=== PATIENT | female | born 1995 | race Caucasian/White ===

== ENCOUNTER → 2019-08-23 09:44 | Outpatient (BNVA) | payer MEDICAID, SELFPAY | PROVIDERS: Family Provider Internal Medicine; PCP Internal Medicine; Visit Provider Nurse Practitioner | DX: M54.9 Dorsalgia, unspecified (principal); Z79.891 Long term (current) use of opiate analgesic | CPT/HCPCS: 99213 ==

== ENCOUNTER → 2019-11-28 12:48 | Outpatient (BNVA) | payer MEDICAID, SELFPAY | PROVIDERS: Family Provider Internal Medicine; PCP Internal Medicine; Visit Provider Anesthesiology | DX: M54.41 Lumbago with sciatica, right side (principal); M54.42 Lumbago with sciatica, left side; Z79.891 Long term (current) use of opiate analgesic | CPT/HCPCS: 99213; 99214 ==

== ENCOUNTER 2020-01-15 06:38 | Outpatient (CLI) | payer MEDICAID, SELFPAY ==
--- NOTE | 2020-01-15 06:50 | USCV_ITS ---
Michele Godoy Age: 24 Gender: F : 1995 Exam Date: 01/15/2020 07:03 Ordering Phys: Erasmo Alexandra DO Technologist: Rajni Call [place]am Location[place] [facility] [place]ication: PALPITATIONS BP: / HR: 67 Rhythm: Sinus Technical Quality: Adequate MEASUREMENTS (Male / Female) Normal Values 2D ECHO LV Diastolic Diameter PLAX 3.9 cm 4.2 - 5.9 / 3.9 - 5.3 cm LV Systolic Diameter PLAX 2.4 cm LV Chamber Size 4.0 cm IVS Diastolic Thickness 1.1 cm 0.6 - 1.0 / 0.6 - 0.9 cm IVS Systolic Thickness 1.7 cm LVPW Diastolic Thickness 1.1 cm 0.6 - 1.0 / 0.6 - 0.9 cm LVPW Systolic Thickness 1.7 cm RV Chamber Size 3.1 cm LVOT Diameter 2.0 cm LV Ejection Fraction 2D Teich 70.8 % LV Ejection Fraction MOD 2C 49.1 % LV Ejection Fraction 2C AL 51.9 % LA Diameter 4.2 cm LA Width 3.5 cm LA Height 4.4 cm RA Width 3.5 cm RA Height 4.6 cm Aorta at Sinotubular Diameter 3.2 cm M-MODE LV Diastolic Diameter MM 5.7 cm 4.2 - 5.9 / 3.9 - 5.3 cm LV Systolic Diameter MM 3.2 cm LV Ejection Fraction MM Teich 74.5 % IVS Diastolic Thickness MM 1.0 cm 0.6 - 1.0 / 0.6 - 0.9 cm IVS Systolic Thickness MM 1.5 cm LVPW Diastolic Thickness MM 1.2 cm 0.6 - 1.0 / 0.6 - 0.9 cm LVPW Systolic Thickness MM 1.6 cm RV Diastolic Diameter MM 1.6 cm Aortic Annulus Diameter 3.3 cm LA Ao Ratio MM 1.3 MV E Point Septal Separation 0.6 cm DOPPLER AV Peak Velocity 108.0 cm/s LVOT Peak Velocity 90.0 cm/s AV Area Cont Eq vti 3.0 cm squared AV Area Cont Eq pk 2.7 cm squared MV Area PHT 4.5 cm squared Mitral E to A Ratio 1.5 MV E' Velocity 13.0 cm/s Mitral E to MV E' Ratio 9.9 Mitral E to LV E' Lateral Ratio 8.3 Mitral E to LV E' Septal Ratio 12.6 TR Peak Velocity 81.7 cm/s TR Peak Gradient 2.7 mmHg TR Mean Velocity 57.3 cm/s TR Mean Gradient 1.4 mmHg TR Velocity Time Integral 15.5 cm TV Peak E Velocity 80.0 cm/s Right Atrial Pressure 3.0 mmHg Pulmonary Artery Systolic Pressu 5.7 mmHg PV Peak Velocity 68.0 cm/s RV Acceleration Time 0.2 s RV Ejection Time 0.4 s RV AcT/ET 0.5 FINDINGS Left Ventricle Normal left ventricular size, systolic function and wall thickness, with no regional wall motion abnormalities. Normal left ventricular wall thickness. Normal diastolic filling pattern. Left ventricular ejection fraction around 70% Right Ventricle The right ventricle is normal in size and function. Right Atrium The right atrium is normal in size. Left Atrium The left atrium is normal in size. Mitral Valve Trace to mild mitral valve regurgitation. Aortic Valve No gross abnormalities noted Tricuspid Valve Trace to mild tricuspid valve regurgitation. Pulmonic Valve No gross abnormalities noted Pericardium Normal pericardium without effusion. Aorta Normal ascending aorta dimension. CONCLUSIONS Normal left ventricular size, systolic function and wall thickness, with no regional wall motion abnormalities. Normal left ventricular wall thickness. Normal diastolic filling pattern. Left ventricular ejection fraction around 70%. Trace to mild mitral valve regurgitation. Trace to mild tricuspid valve regurgitation. There is no pericardial effusion. There are no intracardiac masses. No evidence of intracardiac shunts, by color flow Doppler examination. No previous study is available for comparison. Dr Niko Laurent MD FACC (Electronically Signed) Final Date: 15 January 2020 23:42 S
== END 2020-01-15 06:39 | disposition home or self-care (01) ==
PROVIDERS: PCP Internal Medicine; Visit Provider Internal Medicine
DX: R06.00 Dyspnea, unspecified (principal); I34.0 Nonrheumatic mitral (valve) insufficiency; I07.1 Rheumatic tricuspid insufficiency
CPT/HCPCS: 93306

== ENCOUNTER → 2020-02-20 13:05 | Outpatient (BNVA) | payer MEDICAID, SELFPAY | PROVIDERS: Family Provider Internal Medicine; PCP Internal Medicine; Visit Provider Anesthesiology | DX: M54.42 Lumbago with sciatica, left side (principal); M54.41 Lumbago with sciatica, right side; Z79.891 Long term (current) use of opiate analgesic | CPT/HCPCS: 99213; 99214 ==

== ENCOUNTER → 2020-05-28 10:11 | Outpatient (BNVA) | payer MEDICAID, SELFPAY | PROVIDERS: Family Provider Internal Medicine; PCP Internal Medicine; Visit Provider Anesthesiology | DX: M54.42 Lumbago with sciatica, left side (principal); M54.41 Lumbago with sciatica, right side; Z79.891 Long term (current) use of opiate analgesic | CPT/HCPCS: 99212; 99214 ==

== ENCOUNTER → 2020-06-24 15:43 | Outpatient (BNVA) | payer MEDICAID, SELFPAY | PROVIDERS: Family Provider Internal Medicine; PCP Internal Medicine; Visit Provider Nurse Practitioner Psychiatric/Mental Health | DX: F43.12 Post-traumatic stress disorder, chronic (principal); F33.3 Major depressive disorder, recurrent, severe with psychotic symptoms; Z03.89 Encounter for observation for other suspected diseases and conditions ruled out | CPT/HCPCS: 99214 ==

== ENCOUNTER → 2020-07-01 08:42 | Outpatient (BNVA) | payer MEDICAID, SELFPAY | PROVIDERS: Family Provider Internal Medicine; PCP Internal Medicine; Visit Provider Nurse Practitioner Psychiatric/Mental Health | DX: Z03.89 Encounter for observation for other suspected diseases and conditions ruled out (principal) | CPT/HCPCS: 80053; 80061; 83036 ==

== ENCOUNTER → 2020-07-21 09:34 | Outpatient (BNVA) | payer MEDICAID, SELFPAY | PROVIDERS: Family Provider Internal Medicine; PCP Internal Medicine; Visit Provider Nurse Practitioner Psychiatric/Mental Health | DX: F33.3 Major depressive disorder, recurrent, severe with psychotic symptoms (principal); F43.12 Post-traumatic stress disorder, chronic | CPT/HCPCS: 99213 ==

== ENCOUNTER → 2020-08-15 12:37 | Outpatient (BNVA) | payer MEDICAID, SELFPAY | PROVIDERS: Family Provider Internal Medicine; PCP Internal Medicine; Visit Provider Anesthesiology | DX: M54.5 Low back pain (principal); Z79.891 Long term (current) use of opiate analgesic | CPT/HCPCS: 99213 ==

== ENCOUNTER → 2020-10-07 08:51 | Outpatient (BNVA) | payer MEDICAID, SELFPAY | PROVIDERS: Family Provider Internal Medicine; PCP Internal Medicine; Visit Provider Nurse Practitioner Psychiatric/Mental Health | DX: F33.3 Major depressive disorder, recurrent, severe with psychotic symptoms (principal); F43.12 Post-traumatic stress disorder, chronic | CPT/HCPCS: 99214 ==

== ENCOUNTER → 2020-11-04 08:31 | Outpatient (BNVA) | payer MEDICAID, SELFPAY | PROVIDERS: Family Provider Internal Medicine; PCP Internal Medicine; Visit Provider Nurse Practitioner Psychiatric/Mental Health | DX: F43.12 Post-traumatic stress disorder, chronic (principal); F33.9 Major depressive disorder, recurrent, unspecified | CPT/HCPCS: 99213 ==

== ENCOUNTER → 2020-11-12 12:58 | Outpatient (BNVA) | payer MEDICAID, SELFPAY | PROVIDERS: Family Provider Internal Medicine; PCP Internal Medicine; Visit Provider Social Worker Clinical | DX: F43.12 Post-traumatic stress disorder, chronic (principal); F33.3 Major depressive disorder, recurrent, severe with psychotic symptoms | CPT/HCPCS: 90834 ==

== ENCOUNTER → 2020-11-19 13:08 | Outpatient (BNVA) | payer MEDICAID, SELFPAY | PROVIDERS: Family Provider Internal Medicine; PCP Internal Medicine; Visit Provider Nurse Practitioner | DX: M54.5 Low back pain (principal); Z79.891 Long term (current) use of opiate analgesic | CPT/HCPCS: 99213; 99214 ==

== ENCOUNTER → 2020-12-03 15:52 | Outpatient (BNVA) | payer MEDICAID, SELFPAY | PROVIDERS: Family Provider Internal Medicine; PCP Internal Medicine; Visit Provider Social Worker Clinical | DX: F33.3 Major depressive disorder, recurrent, severe with psychotic symptoms (principal); F43.12 Post-traumatic stress disorder, chronic | CPT/HCPCS: 90834 ==

== ENCOUNTER → 2020-12-29 07:29 | Outpatient (BNVA) | payer MEDICAID, SELFPAY | PROVIDERS: Family Provider Internal Medicine; PCP Internal Medicine; Visit Provider Nurse Practitioner Psychiatric/Mental Health | DX: F43.12 Post-traumatic stress disorder, chronic (principal); F33.3 Major depressive disorder, recurrent, severe with psychotic symptoms | CPT/HCPCS: 99213 ==

== ENCOUNTER 2021-01-14 11:56 | Outpatient (CLI) | payer OTHER, SELFPAY ==
--- NOTE | 2021-01-14 12:03 | XR_ITS ---
WS: [id number] XR lumbar spine 2-3V* [id number] REASON FOR EXAM: ?DDD FINDINGS: No focal vertebral body abnormality. Minimal narrowing of the L5-S1 disc space. No spondylolisthesis or spondylolysis. XR/XR lumbar spine 2-3V* [id number] IMPRESSION: Minimal degenerative disc change at L5-S1 as above.
--- NOTE | 2021-01-14 12:03 | XR_ITS ---
WS: [id number] XR cervical spine 3V* [id number] REASON FOR EXAM: ?DDD FINDINGS: The cervical spine is unchanged compared to the examination of 03/12/2015. There is narrowing of the i ntervertebral disc space at C3-C4. The remainder of the cervical spine bone and disc are unremarkable. XR/XR cervical spine 3V* [id number] IMPRESSION: Stable abnormal examination as above.
== END 2021-01-14 11:57 | disposition home or self-care (01) ==
LOC: RAD 12:00
PROVIDERS: PCP Internal Medicine; Visit Provider Dermatology
DX: Z02.71 Encounter for disability determination (principal)
CPT/HCPCS: 72040; 72100

== ENCOUNTER → 2021-02-13 08:47 | Outpatient (BNVA) | payer MEDICAID, SELFPAY | PROVIDERS: PCP Internal Medicine; Visit Provider Nurse Practitioner | DX: M54.5 Low back pain (principal); Z79.891 Long term (current) use of opiate analgesic | CPT/HCPCS: 99212 ==

== ENCOUNTER 2021-03-18 15:17 | Outpatient (CLI) | payer MEDICAID, SELFPAY | END 2021-03-18 15:18 | disposition home or self-care (01) | LOC: SLEEP 15:18 | PROVIDERS: PCP Internal Medicine; Visit Provider Internal Medicine | DX: G47.10 Hypersomnia, unspecified (principal) | CPT/HCPCS: G0399 ==

== ENCOUNTER → 2021-03-30 07:02 | Outpatient (BNVA) | payer MEDICAID, SELFPAY | PROVIDERS: PCP Internal Medicine; Visit Provider Nurse Practitioner Psychiatric/Mental Health | DX: F43.12 Post-traumatic stress disorder, chronic (principal); F33.3 Major depressive disorder, recurrent, severe with psychotic symptoms; Z03.89 Encounter for observation for other suspected diseases and conditions ruled out | CPT/HCPCS: 99214 ==

== ENCOUNTER 2021-04-01 22:18 | Emergency (ER) | payer MEDICAID, SELFPAY ==
[2021-04-01 22:24] VITALS: BP 131/84; PULSE 70; RESP 18; TEMP 36.9; O2SAT 97; BMI 47.1
--- NOTE | 2021-04-01 23:38 | ED_ITS ---
HPI - Animal Bite General: Chief Complaint: Animal Bite Stated Complaint: Right hand injury Time Seen by Provider: 04/01/21 22:37 History of Present Illness: HPI narrative: Patient is a 25-year-old female comes to the ED with a cat bite to right hand. Patient was bit by cat on 2 separate occasions and one occurred last night and the other 1 occurred this morning. Patient owns the cat and it is fully vaccinated including rabies vaccination. She has some mild swelling, ecchymosis and pain to right hand with multiple puncture wounds. Patient needs an updated tetanus shot. Associated symptoms: Deny chills, fever(s) or headache(s) Review of Systems Const: Denies: fever(s), chills or fatigue Eyes: Denies: change in vision or eye discomfort ENMT: Denies: throat pain, odynophagia, nasal discharge or nasal congestion Card: Denies: chest pain, palpitations, edema, swelling of feet/ankles, dyspnea on exertion or orthopnea Resp: Denies: dyspnea, productive cough or non-productive cough GI: Denies: abdominal pain, nausea, vomiting, diarrhea, constipation or hematochezia : Denies: flank pain, dysuria or hematuria Musc: Reports: extremity pain (Right hand) and extremity swelling (Right hand); Denies: neck pain or back pain Skin/Breast: Denies: rash or new lesions Neuro: Denies: headache(s), numbness in extremities or weakness in extremities PFS ED PFSH: Medical History Chronic post-traumatic stress disorder (PTSD) Per Behavior Assessment Report on 05/27/20:She has nightmares, flashbacks, some loud noises bother her, she feels it is her vertigo; she avoids certain situations, places, people, and things that may trigger her trauma. See HPI for further information regarding trauma history. Encounter for long-term opiate analgesic use Low back pain of over 3 months duration Opioid contract exists Surgical History History of tonsillectomy and adenoidectomy Hx of gastric bypass Family History Unknown Cancer Diabetes Stroke Father Advanced cirrhosis of liver Diabetes Hepatitis C Social History Smoking and tobacco status: never smoked Second hand smoke exposure: Yes Alcohol intake: never History of recent travel: No Current gender identity: Female Female Reproductive History: Date of last menstrual period: 04/19/21 Physical Exam Const: COMMON NORMALS: no acute distress, patient oriented x3 and alert GENERAL APPEARANCE: cooperative and comfortable HENMT: COMMON NORMALS: normocephalic HEAD & SCALP: normocephalic MOUTH: Normal oral and palatal mucosa present THROAT: posterior oropharynx normal and uvula midline Neck/C-Spine: COMMON NORMALS: supple GENERAL: Yes normal visual inspection Resp: COMMON NORMALS: normal respiratory effort, No retractions, No use of accessory muscles and clear to auscultation bilaterally AUSCULTATION: clear to auscultation bilaterally Cardio: COMMON NORMALS: regular rate, regular rhythm, S1 normal heart sound present, S2 normal heart sound present, No gallops present (Cardio), No clicks present (Cardio), No murmurs present (Cardio) and Peripheral pulses 2+ throughout RATE: regular rate RHYTHM: regular rhythm HEART SOUNDS: S1 normal heart sound present and S2 normal heart sound present PERIPHERAL PULSES: Peripheral pulses 2+ throughout GI: COMMON NORMALS: Normal to inspection, nondistended, normoactive bowel sounds present, Soft to palpation, non-tender and no masses PALPATION: Yes So ft to palpation : COMMON NORMALS: Yes no CVA tenderness BLADDER/KIDNEY EXAM: Yes no CVA tenderness Back/Pelvis: COMMON NORMALS: no CVA tenderness Extremity: NARRATIVE EXTREMITY EXAM: Patient has multiple small puncture wounds to right hand. Some mild swelling and ecchymosis noted as well. Some erythema and warmth around puncture wound as well. GENERAL: Yes normal exam except as noted Neuro: COMMON NORMALS: patient oriented x3 and moves all extremities SENSORIUM/ORIENTATION: Yes alert Skin: NARRATIVE SKIN EXAM: Patient has multiple small puncture wounds to right hand. Some mild swelling and ecchymosis noted as well. Some erythema and warmth around puncture wound as well. GENERAL SKIN EXAM: dry skin Course Vital Signs: Vital signs: Vital Signs Temperature 98.4 F 04/01/21 22:24 Pulse Rate 70 04/01/21 22:24 Respiratory Rate 18 04/01/21 22:24 Blood Pressure 131/84 04/01/21 22:24 Pulse Oximetry 97 04/01/21 22:24 MDM - Animal Bite MDM Narrative: Medical decision making narrative: Patient is a 25-year-old female comes to the ED with a cat bite on right hand. Has multiple puncture wounds noted with some mild swelling, erythema and ecchymosis noted. Cat was fully vaccinated including for rabies. X-ray of right hand showed no acute fractures or findings. Patient was given updated tetanus while here in the ED. Patient diagnosed with a cat bite on right hand discharged home with a prescription for Augmentin. Patient told to follow-up with PCP in 7 to 10 days for reevaluation. Return to ED precautions given. Patient understood and agree with plan. Imaging Data^: Xray Ortho: Attestation: I personally reviewed and interpreted this imaging study as follows: My impression: Right hand x-ray?no acute fractures or findings seen. Discharge Plan Discharge Patient Disposition: Home Clinical Impression: Cat bite Qualifiers: Encounter type: initial encounter Qualified Code(s): W55.01XA - Bitten by cat, initial encounter Condition: Stable Prescriptions: New Augmentin 500-125 mg tablet 1 tab PO BID 10 Days Qty: 20 RF: 0 ibuprofen 800 mg tablet 800 mg PO Q8H PRN (Reason: pain) Qty: 20 RF: 0 No Action magnesium 250 mg tablet 250 mg PO .1 DAY RF: 0 vitamin B complex Tablet 1 tab PO .1 DAY RF: 0 biotin 800 mcg tablet 800 mcg PO .1 DAY RF: 0 montelukast 10 mg tablet 10 mg PO DAILY RF: 0 ondansetron HCl [Zofran] 4 mg tablet 4 mg PO .1-2 qid PRNRF: 0 cetirizine 10 mg tablet 10 mg PO DAILY RF: 0 omeprazole 20 mg capsule,delayed release(DR/EC) 20 mg PO DAILY RF: 0 hydroxyzine HCl 25 mg tablet 25 mg PO BID PRNRF: 0 potassium gluconate 595 mg (99 mg) tablet 595 mg PO DAILY RF: 0 citalopram 40 mg tablet 40 mg PO QAM Qty: 30 RF: 2 medroxyprogesterone [Depo-Provera] 150 mg/mL suspension IM .EVERY 3 MONTHS RF: 0 tizanidine 4 mg tablet 4 mg PO BID PRN (Reason: muscle spasticity) Qty: 60 RF: 2 tramadol 50 mg tablet 50 mg PO QID PRN (Reason: pain) Qty: 120 RF: 2 Discharge Orders: Discharge ED (Routine); Ordered 04/02/21 Ordered By: Brent Stanford Referrals: Erasmo Alexandra DO [Primary Care Provider] - Discharge Diet: Regular Discharge Activity: Increase activity as tolerated Patient Instructions: Animal Bites - Adult Activity Restrictions/Additional Instructions: Follow-up with medical provider as directed in 7 to 10 days for reevaluation. Take medications as prescribed. Apply cold pack on hand to help with swelling. Return to the ER or your medical provider if condition worsens. Please read and understand discharge instructions. Thank you for choosing [facility] for your healthcare needs today. Please realize this is an emergency room and that we are providing you with a medical screening exam and this may not be complete and all inclusive of all the testing and or work up that you may need to determine your ailment or severity of your illness. It is very important that you follow up as instructed or that you return to the Emergency Department should you have concerns or if your condition changes or worsens in any way. Coding Level of Care Code ED Food And Beverage Coordinator for Phillip Read Exam Comprehensive
--- NOTE | 2021-04-01 23:40 | XRR_ITS ---
PROCEDURE INFORMATION: Exam: XR Right Hand Exam date and time: 04/01/2021 11:40 PM Age: 25 years old Clinical indication: Pain and injury or trauma; Other: Puncture; Right; Patient HX: Cat bite to top of hand. Swelling with redness. ; Additional info: Cat bite with swelling and ecchymosis TECHNIQUE: Imaging protocol: XR Right hand. Views: 3 or more views. COMPARISON: No relevant prior studies available. FINDINGS: Bones/joints: Normal. Soft tissues: There is moderate soft tissue swelling in the dorsum of the hand punctate focus of air. No foreign body. XR/XR hand RT min 3V* [id number] IMPRESSION: No acute bony injury or foreign body. Radiation Dose CTDIVOL = (mGy): DLP = (mGy-cm)
[2021-04-02] MEDS: tetanus-dipt-pertussis 0.5 mL SDV IM (00:07)
[2021-04-02] MEDS: amoxicillin-clav 500-125 mg Tablet 1 TAB PO (01:02)
[2021-04-02 01:03] VITALS: BP 134/86; PULSE 70; RESP 18; O2SAT 97
== END 2021-04-02 01:00 | disposition home or self-care (01) ==
PROVIDERS: Emergency Provider Physician Assistant; PCP Internal Medicine
DX: S61.451A Open bite of right hand, initial encounter (principal); W55.01XA Bitten by cat, initial encounter; Z77.22 Contact with and (suspected) exposure to environmental tobacco smoke (acute) (chronic); Z23 Encounter for immunization
CPT/HCPCS: 73130; 90471; 90715; 99283

== ENCOUNTER → 2021-04-16 09:57 | Outpatient (BNVA) | payer MEDICAID, SELFPAY | PROVIDERS: PCP Internal Medicine; Visit Provider Nurse Practitioner Psychiatric/Mental Health | DX: Z03.89 Encounter for observation for other suspected diseases and conditions ruled out (principal) | CPT/HCPCS: 84439; 84443; 84481 ==

== ENCOUNTER → 2021-07-15 09:46 | Outpatient (BNVA) | payer MEDICAID, SELFPAY | PROVIDERS: PCP Internal Medicine; Visit Provider Anesthesiology | DX: M54.50 Low back pain, unspecified (principal); Z79.891 Long term (current) use of opiate analgesic | CPT/HCPCS: 99213 ==

== ENCOUNTER → 2021-11-30 14:36 | Outpatient (BNVA) | payer MEDICAID, SELFPAY | PROVIDERS: PCP Internal Medicine; Visit Provider Nurse Practitioner Psychiatric/Mental Health | DX: F43.12 Post-traumatic stress disorder, chronic (principal); F33.3 Major depressive disorder, recurrent, severe with psychotic symptoms | CPT/HCPCS: 99213 ==

== ENCOUNTER 2022-02-09 07:54 | Outpatient (CLI) | payer MEDICAID, SELFPAY ==
--- NOTE | 2022-02-09 08:06 | NM_ITS ---
WS: [id number] NUCLEAR MEDICINE HIDA SCAN CLINICAL INFORMATION: RUQ ABDOMINAL PAIN TECHNIQUE: Following intravenous administration of 7.8 mCi of technetium 99m mebrofenin, images of th e abdomen were obtained over the course of 60 minutes. Next, gallbladder ejection fraction was determ ined by obtaining preprandial and one-hour postprandial images of the gallbladder following oral selma stion of Ensure. COMPARISON: Ultrasound December 24, 2021 and HIDA FINDINGS: Mild hepatomegaly. Normal hepatic uptake and excretion. Gallbladder visualized by 30 minutes. No evid ence of acute cholecystitis. Normal common bile duct and small bowel activity. Gallbladder ejection fraction 78% within normal limits. No evidence of chronic cholecystitis. NM/NM hepatobiliary w phar* [id number] IMPRESSION: 1. No evidence of acute or chronic cholecystitis. 2. Gallbladder ejection fraction 78% within normal limits.
== END 2022-02-09 07:55 | disposition home or self-care (01) ==
LOC: RAD 07:58
PROVIDERS: PCP Internal Medicine; Visit Provider Internal Medicine
DX: R10.11 Right upper quadrant pain (principal)
CPT/HCPCS: 78227; A9537

== ENCOUNTER 2022-03-13 17:58 | Emergency (ER) | payer MEDICAID, SELFPAY ==
[2022-03-13 18:03] VITALS: BP 177/85; PULSE 75; RESP 16; TEMP 36.6; O2SAT 98; BMI 48.4
[2022-03-13 18:44] LABS: Basophils % 0.5 %; Eosinophils # 0.2 10^3/uL (0.0-0.8); Eosinophils % 1.8 %; Hematocrit 36.4 % (37.0-47.0); Hemoglobin 12.4 g/dL (11.5-15.3); Lymphocytes # 2.1 10^3/uL (0.8-4.8); Lymphocytes % 25.4 %; Mean Corpuscular HGB Conc 34.1 g/dL (30.0-36.0); Mean Corpuscular Hemoglobin 31.4 pg (28.0-34.0); Mean Corpuscular Volume 92.2 fl (81-99); Mean Platelet Volume 10.6 fL (7.4-10.4); Monocytes # 0.7 10^3/uL (0.2-0.9); Monocytes % 8.2 %; Neutrophils # 5.33 10^3/uL (1.8-7.7); Neutrophils % 63.9 %; Nucleated Red Blood Cells % 0 %; Platelet Count 261 10^3/cmm (130-400); Red Blood Count 3.95 10^6/uL (4.1-5.3); White Blood Count 8.3 10^3/uL (4.0-10.0)
[2022-03-13 19:21] LABS: Alanine Aminotransferase 11 U/L (0-33); Alkaline Phosphatase 58 U/L (35-105); Anion Gap 13.7 (5-19); Aspartate Amino Transferase 15 U/L (0-32); Blood Urea Nitrogen 9 mg/dL (6-20); Calcium 8.9 mg/dL (8.5-10.5); Carbon Dioxide 23 mmol/L (22-29); Chloride 106 mmol/L (98-107); Globulin 2.5 g/dL (1.3-4.6); Glucose 99 mg/dL (65-115); HCG, Serum Qual Negative (Negative); Lipase 52 U/L (13-60); Osmolality Calculated 287 mOsm/kg (285-295); Potassium 3.7 mmol/L (3.5-5.1); Sodium 139 mmol/L (136-145); Total Bilirubin 0.2 mg/dL (0.15-1.2); Total Protein 6.5 g/dL (6.6-8.7)
--- NOTE | 2022-03-13 19:43 | ED_ITS ---
HPI - SOB/Dyspnea General: Chief Complaint: Shortness of Breath/Dyspnea Stated Complaint: Abd pains, Sob, N/V Time Seen by Provider: 03/13/22 19:43 History of Present Illness: HPI Narrative: Ms. Godoy is a 26-year-old lady with complex past medical history presents to the emergency department due to abdominal pain and shortness of breath. She reports being at her baseline health and being upset about something when she walked to her room. She had sudden onset epigastric and the right upper quadrant abdominal pain which radiated to the chest and due to the level of pain she felt short of breath. This is still present. She had 1 similar episode previously and that was yesterday under similar circumstances. Quality is sharp stabbing. Intensity is moderate to severe. No other specific changes in health, exacerbating, or alleviating factors identified. Onset (ago): minute(s) Context: anxiety and other Timing: constant Severity: moderate Relieving factors: nothing Review of Systems General: Reports: 10 or more systems reviewed and unremarkable except in HPI and below PFSH ED PFSH: Medical History Chronic post-traumatic stress disorder (PTSD) Per Behavior Assessment Report on 05/27/20:She has nightmares, flashbacks, some loud noises bother her, she feels it is her vertigo; she avoids certain situations, places, people, and things that may trigger her trauma. See HPI for further information regarding trauma history. Encounter for long-term opiate analgesic use Low back pain of over 3 months duration Opioid contract exists Surgical History History of tonsillectomy and adenoidectomy Hx of gastric bypass Family History Unknown Cancer Diabetes Stroke Father Advanced cirrhosis of liver Diabetes Hepatitis C Social History Smoking and tobacco status: never smoked Second hand smoke exposure: Yes Alcohol intake: never History of recent travel: No Current gender identity: Female Female Reproductive History: Date of last menstrual period: 04/19/21 Physical Exam Const: COMMON NORMALS: alert GENERAL APPEARANCE: cooperative and well developed HENMT: COMMON NORMALS: normocephalic and atraumatic HEAD & SCALP: normocephalic and atraumatic Eye: COMMON NORMALS: conjunctivae normal CONJUNCTIVA: Yes conjunctivae nor mal SCLERA: sclerae normal Neck/C-Spine: COMMON NORMALS: supple GENERAL: Yes trachea midline Resp: COMMON NORMALS: clear to auscultation bilaterally EFFORT & INSPECTION: Yes able to speak in complete sentences AUSCULTATION: clear to auscultation bilaterally Cardio: COMMON NORMALS: regular rate and regular rhythm RATE: regular rate RHYTHM: regular rhythm GI: COMMON NORMALS: Soft to palpation PALPATION: Yes Soft to palpation and No Tenderness to palpation present (GI) Extremity: GENERAL: Yes normal exam except as noted and No edema Neuro: COMMON NORMALS: moves all extremities SENSORIUM/ORIENTATION: Yes alert and No Orientation impaired Psych: COMMON NORMALS: mental status grossly normal and Normal thought process present THOUGHT PROCESS: Normal thought process present Course Vital Signs: Vital signs: Vital Signs Temperature 98.1 F 03/13/22 21:53 Pulse Rate 78 03/13/22 21:53 Respiratory Rate 17 03/13/22 21:53 Blood Pressure 131/79 03/13/22 21:53 Pulse Oximetry 97 03/13/22 21:53 Oxygen Delivery Me thod 03/13/22 20:30 MDM - SOB/Dyspnea Medical Decision Making 26-year-old lady presenting with shortness of breath and other symptoms in the context of being upset. Vital signs are satisfactory. EKG shows on sinus bradycardia with no evidence of STEMI. Laboratory studies without clear ab normality to explain symptoms. Chest x-ray with no lobar consolidation or pneumothorax. Gallbladder ultrasound concerning for cholecystitis. After extensive discussion with the patient she prefers trial of therapy with antibiotics at home. Strict return precautions and follow-up plan discussed. Plan to have follow-up with general surgery. Medical Records I reviewed the patient's medical records. Lab Data I reviewed the patient's lab results. : 03/13/22 18:35 03/13/22 18:35 Labs/Radiology: Radiology Impressions Abdomen Ultrasound 03/13/22 19:52 IMPRESSION: 1. Cholelithiasis with gallbladder wall thickening to 5.8 mm, concerning for cholecystitis in the appropriate clinical setting. 2. Liver enlarged to 18.5 cm with hepatic steatosis. Chest X-Ray 03/13/22 19:52 IMPRESSION: No acute findings. Laboratory Results WBC 8.3 10^3/uL (4.0-10.0) 03/13/22 18:35 RBC 3.95 10^6/uL (4.1-5.3) L 03/13/22 18:35 Hgb 12.4 g/dL (11.5-15.3) 03/13/22 18:35 Hct 36.4 % (37.0-47.0) L 03/13/22 18:35 MCV 92.2 fl (81-99) 03/13/22 18:35 MCH 31.4 pg (28.0-34.0) 03/13/22 18:35 MCHC 34.1 g/dL (30.0-36.0) 03/13/22 18:35 RDW 12.0 % (12.1-15.1) L 03/13/22 18:35 Plt Count 261 10^3/cmm (130-400) 03/13/22 18:35 MPV 10.6 fL (7.4-10.4) H 03/13/22 18:35 Neut % (Auto) 63.9 % 03/13/22 18:35 Lymph % (Auto) 25.4 % 03/13/22 18:35 [place] % (Auto) 8.2 % 03/13/22 18:35 Eos % (Auto) 1.8 % 03/13/22 18:35 Baso % (Auto) 0.5 % 03/13/22 18:35 Neut # (Auto) 5.33 10^3/uL (1.8-7.7) 03/13/22 18:35 Lymph # (Auto) 2.1 10^3/uL (0.8-4.8) 03/13/22 18:35 [place] # (Auto) 0.7 10^3/uL (0.2-0.9) 03/13/22 18:35 Eos # (Auto) 0.2 10^3/uL (0.0-0.8) 03/13/22 18:35 Baso # (Auto) 0.0 10^3/uL (0.0-0.1) 03/13/22 18:35 Nucleated RBC % (auto) 0 % 03/13/22 18:35 Nucleated RBCs # 0.0 /100WBC 03/13/22 18:35 Sodium 139 mmol/L (136-145) 03/13/22 18:35 Potassium 3.7 mmol/L (3.5-5.1) 03/13/22 18:35 Chloride 106 mmol/L (98-107) 03/13/22 18:35 Carbon Dioxide 23 mmol/L (22-29) 03/13/22 18:35 Anion Gap 13.7 (5-19) 03/13/22 18:35 BUN 9 mg/dL (6-20) 03/13/22 18:35 Creatinine 1.0 mg/dL (0.5-0.9) H 03/13/22 18:35 GFR Calculation 67.0 mL/min (90-130) L 03/13/22 18:35 Glucose 99 mg/dL (65-115) 03/13/22 18:35 Calculated Osmolality 287 mOsm/kg (285-295) 03/13/22 18:35 Calcium 8.9 mg/dL (8.5-10.5) 03/13/22 18:35 Total Bilirubin 0.2 mg/dL (0.15-1.2) 03/13/22 18:35 AST 15 U/L (0-32) 03/13/22 18:35 ALT 11 U/L (0-33) 03/13/22 18:35 Alkaline Phosphatase 58 U/L (35-105) 03/13/22 18:35 Total Protein 6.5 g/dL (6.6-8.7) L 03/13/22 18:35 Albumin 4.0 g/dL (3.5-5.2) 03/13/22 18:35 Globulin 2.5 g/dL (1.3-4.6) 03/13/22 18:35 Lipase 52 U/L (13-60) 03/13/22 18:35 HCG, Qual Negative (Negative) 03/13/22 18:35 Urine Color Yellow (Yellow) 03/13/22 21:12 Urine Appearance Sl hazy (CLEAR) 03/13/22 21:12 Urine pH 5 (5-7) 03/13/22 21:12 Ur Specific [place] 1.025 (1.005-1.030) 03/13/22 21:12 Urine Protein Neg (Negative) 03/13/22 21:12 Urine Glucose (UA) Norm (Normal) 03/13/22 21:12 Urine Ketones 1+ (Negative) H 03/13/22 21:12 Urine Blood Neg (Negative) 03/13/22 21:12 Urine Nitrate Negative (Negative) 03/13/22 21:12 Urine Bilirubin Neg (Negative) 03/13/22 21:12 Urine Urobilinogen 1 mg/dL (Negative) H 03/13/22 21:12 Ur Leukocyte Esterase Trace (Negative) H 03/13/22 21:12 Urine RBC 0-4 /hpf (0-2) H 03/13/22 21:12 Urine WBC 5-10 /hpf (0-5) H 03/13/22 21:12 Ur Squamous Epith Cells 10-15 /hpf (0-5) H 03/13/22 21:12 Amorphous Sediment Not Reportable 03/13/22 21:12 Urine Bacteria 2+ /hpf (NONE) H 03/13/22 21:12 Urine Mucus 1+ /hpf 03/13/22 21:12 SARS-CoV-2 Ag (Rapid) Negative (Negative) 03/13/22 20:26 Discharge Plan Discharge Patient Disposition: Home Clinical Impression: Biliary colic, Thickening of wall of gallbladder, Cholelithiases Condition: Stable Prescriptions: New ondansetron 4 mg tablet,disintegrating 4 mg PO Q8H PRN (Reason: nausea and vomiting) Qty: 15 0RF oxycodone 5 mg tablet 5 mg PO Q4H PRN (Reason: pain) Qty: 20 0RF ciprofloxacin HCl 500 mg tablet 500 mg PO Q12H Qty: 20 0RF No Action magnesium 250 mg tablet 250 mg PO .1 DAY vitamin B complex Tablet 1 tab PO .1 DAY montelukast 10 mg tablet 10 mg PO DAILY ondansetron HCl [Zofran] 4 mg tablet 4 mg PO .1-2 qid PRN cetirizine 10 mg tablet 10 mg PO DAILY omeprazole 20 mg capsule,delayed release(DR/EC) 20 mg PO DAILY hydroxyzine HCl 25 mg tablet 25 mg PO BID PRN potassium gluconate 595 mg (99 mg) tablet 595 mg PO DAILY medroxyprogesterone [Depo-Provera] 150 mg/mL suspension IM .EVERY 3 MONTHS tizanidine 4 mg tablet 4 mg PO BID PRN (Reason: muscle spasticity) Qty: 60 2RF risperidone 0.5 mg tablet 0.5 mg PO BID Qty: 60 0RF Rx Instructions: Take one tablet by mouth morning and at bedtime citalopram 40 mg tablet 40 mg PO QAM Qty: 30 0RF Rx Instructions: Take one tablet by mouth every morning ibuprofen 800 mg tablet 800 mg PO Q8H PRN (Reason: pain) Qty: 20 0RF Discharge Orders: Discharge ED (Routine); Ordered 03/13/22 Ordered By: Shamir Rubi Referrals: Erasmo Alexandra DO [Primary Care Provider] - Discharge Diet: Low Fat Discharge Activity: Increase activity as tolerated Patient Instructions: Biliary Colic (ED), Low Fat Diet (ED), Abdominal Pain (ED), Opioid Safety Activity Restrictions/Additional Instructions: Thank you for visiting the emergency department. You were seen and evaluated for abdominal pain and shortness of breath. As discussed the exact cause of your symptoms is unclear though may be related to infection of the gallbladder (cholecystitis). You are electing to have a trial of treatment at home and I will message case management for follow-up with general surgery. Return to the emergency department for uncontrolled symptoms, fevers, inability to tolerate oral intake, or anything else that you are concerned about a feel needs emergency department evaluation. Coding Level of Care Code ED Senior Science Consultant for Phillip Read
--- NOTE | 2022-03-13 19:52 | USR_ITS ---
PROCEDURE INFORMATION: Exam: US Abdomen, Limited; Right Upper Quadrant Exam date and time: 03/13/2022 7:58 PM Age: 26 years old Clinical indication: Abdominal pain and other: PT very SOB and chest pain; Acute; Patient HX: Please see prior nuc med scan and US of abd ltd; Additional info: Ruq/biliary TECHNIQUE: Imaging protocol: Real time ultrasound of the abdomen with image documentation. Limited exam focused on the right upper quadrant. COMPARISON: US abdomen limited [id number] 12/24/2021 3:23 PM FINDINGS: Liver: Liver enlarged to 18.5 cm with hepatic steatosis. Gallbladder: Cholelithiasis with gallbladder wall thickening to 5.8 mm, concerning for cholecystitis in the appropriate clinical setting. Biliary ducts: Normal. No stones. No dilation. Pancreas: Visualized pancreas is unremarkable. Right kidney: Normal. No mass. No hydronephrosis. US/US abdomen limited [id number] IMPRESSION: 1. Cholelithiasis with gallbladder wall thickening to 5.8 mm, concerning for cholecystitis in the appropriate clinical setting. 2. Liver enlarged to 18.5 cm with hepatic steatosis.
--- NOTE | 2022-03-13 19:52 | XRR_ITS ---
PROCEDURE INFORMATION: Exam: XR Chest Exam date and time: 03/13/2022 8:25 PM Age: 26 years old Clinical indication: Chest wall pain; Additional info: SOB TECHNIQUE: Imaging protocol: Radiologic exam of the chest. Views: 1 view. COMPARISON: CR XR chest 2V* [id number] 12/26/2019 1:47 PM FINDINGS: Lungs: Unremarkable. No consolidation. Pleural spaces: Unremarkable. No pleural effusion. No pneumothorax. Heart/Mediastinum: Unremarkable. No cardiomegaly. Bones/joints: Unremarkable. XR/XR chest 1V portable [id number] IMPRESSION: No acute findings.
--- NOTE | 2022-03-13 20:08 | PC.NURSE ---
ultrasound at bedside performing test. will attempt IV and pain medications upon finsihing. patient in no obivous distress.
[2022-03-13] MEDS: ondansetron 2 mg/ML SDV 2 mL 4 MG IVP (20:27)
[2022-03-13 20:30] VITALS: BP 139/68; PULSE 61; RESP 18; O2SAT 99
--- NOTE | 2022-03-13 20:34 | ECG_ITS ---
[facility] Test Date: 2022-03-13 Pat Name: Michele Godoy Department: Room: Gender: Female Hospital Pharmacy Technician: : 1995 Requested By: Shamir Rubi Order Number: [id number] Reading MD: Measurements Intervals [place] Rate: 50 P: 51 [place]: 154 QRS: 54 QRSD: 84 T: 37 QT: 444 QTc: 409 Interpretive Statements SINUS BRADYCARDIA Compared to ECG 06/11/2016 13:19:06 Sinus rhythm no longer present Sinus arrhythmia no longer present [email or web address]
[2022-03-13 20:52] LABS: SARS Covid-2 Antigen Negative (Negative)
[2022-03-13 21:50] LABS: Bilirubin Urine Neg (Negative); Blood Urine Neg (Negative); Glucose Urine UA Norm (Normal); Ketones Urine 1+ (Negative); Nitrate Urine Negative (Negative); Protein Urine Neg (Negative); Specific Gravity, Urine 1.025 (1.005-1.030); Urine Appearance SL Hazy (CLEAR); Urine Color Yellow (Yellow); Urobilinogen Urine 1 mg/dL (Negative); pH Urine 5 (5-7)
[2022-03-13 21:51] LABS: Add Urine Microscopic? YES; Leukocyte Esterase Urine Trace (Negative); RBC Urine 0-4 /hpf (0-2)
[2022-03-13 21:52] LABS: Add Urine Culture? No; Bacteria Urine 2+ /hpf; Mucus Urine 1+ /hpf
[2022-03-13 21:53] VITALS: BP 131/79; PULSE 78; RESP 17; TEMP 36.7; O2SAT 97
--- NOTE | 2022-03-16 08:16 | DCPLANNER ---
Addendum entered by Luciana Philippe 06/18/22 14:13: Patient had a follow up appointment scheduled with general surgery - patient did attend appointment. Addendum entered by Luciana Philippe 03/16/22 15:03: Patient has a follow up appointment scheduled for Friday, March 25, 2022 at 2:[address] Akbar at general surgery. Clinic will call patient with appointment information. Original Note: manager analysis had message to schedule a follow up appointment for patient with general surgery. manager analysis sent patients information to the front office staff at general surgery. Patients information will be printed and reviewed. Clinic will call patient with appointment information.
== END 2022-03-13 21:58 | disposition home or self-care (01) ==
PROVIDERS: Physician Assistant; Emergency Provider Emergency Medicine; PCP Internal Medicine
DX: K80.20 Calculus of gallbladder without cholecystitis without obstruction (principal); Z20.822 Contact with and (suspected) exposure to COVID-19; Z77.22 Contact with and (suspected) exposure to environmental tobacco smoke (acute) (chronic)
CPT/HCPCS: 71045; 76705; 80053; 81001; 83690; 84703; 85025; 87426; 93005; 96374; 99285; J2405

== ENCOUNTER → 2022-03-25 13:48 | Outpatient (BNVA) | payer MEDICAID, SELFPAY | PROVIDERS: PCP Internal Medicine; Visit Provider Surgery | DX: R10.11 Right upper quadrant pain (principal); K76.0 Fatty (change of) liver, not elsewhere classified; Z98.84 Bariatric surgery status | CPT/HCPCS: 99203 ==

== ENCOUNTER → 2023-04-28 07:37 | Outpatient (BNVA) | payer MEDICAID, SELFPAY | PROVIDERS: PCP Internal Medicine; Referring Provider Internal Medicine; Visit Provider Psychiatry & Neurology Neurology | DX: G43.909 Migraine, unspecified, not intractable, without status migrainosus (principal) | CPT/HCPCS: 36415; 82306; 82565; 82607; 82746; 83735; 83921; 84520; 99203 ==

== ENCOUNTER 2023-05-31 13:55 | Outpatient (CLI) | payer MEDICAID, SELFPAY ==
--- NOTE | 2023-05-31 | MR_ITS ---
WS: [id number] MRI BRAIN WITH AND WITHOUT CONTRAST HISTORY: G43.909 - Migraine, unspecified, not intractable, without... COMPARISON: None available. TECHNIQUE: Multiplanar imaging performed through the brain with MultiHance 20 ml's IV. No acute infarcts are seen. Carbone-white matter differentiation is well preserved. Normal hippocampal f ormations. No susceptibility artifacts or prior lacunar infarcts. Ventricles and extra-axial spaces are normal. Clivus and pituitary gland are normal. Visualized posterior fossa and brainstem are also normal. Postcontrast images are negative for masses or vascular malformations. Dural venous sinuses are normal. Paranasal sinuses: Well aerated with no significant disease. Mastoid air cells: Normal. Calvarium and scalp: Normal. IMPRESSION: 1. Normal MRI brain with contrast. 2. No prior infarct. No hemorrhage. 3. Normal hippocampal formations.
[2023-05-31] MEDS: gadobenate dimeglumine 20 mL vial IV (15:27)
== END 2023-05-31 13:56 | disposition home or self-care (01) ==
PROVIDERS: PCP Internal Medicine; Visit Provider Psychiatry & Neurology Neurology
DX: G43.909 Migraine, unspecified, not intractable, without status migrainosus (principal)
CPT/HCPCS: 70553; A9577

== ENCOUNTER 2024-02-25 20:47 | Emergency (ER) | payer MEDICAID, SELFPAY ==
[2024-02-25 20:50] VITALS: BP 140/85; PULSE 83; RESP 17; TEMP 36.8; O2SAT 98; BMI 50.0
[2024-02-25 21:05] VITALS: BP 135/89; PULSE 80; RESP 16; O2SAT 99
--- NOTE | 2024-02-25 21:26 | W.ED.URI ---
Documented by User: HARMEET Newton 02/25/24 22:59 HPI - URI/Sore Throat General: Chief Complaint: Upper Respiratory Infection Stated Complaint: believes covid + Time Seen by Provider: 02/25/24 20:57 Source: patient Mode of arrival: ambulatory Limitations: no limitations History of Present Illness: Patient is a 28-year-old female presenting to the emergency department complaining of upper respiratory symptoms beginning today. She states she was exposed to positive COVID-patient, she works for a [employer] service and this is where she was exposed to the patient. Her symptoms have been worsening throughout the day, and include chills, nausea, shortness of breath, subjective fever, diarrhea, sore throat, and bodyaches. Has not taken anything for her symptoms. MD elicited complaint: other (Upper respiratory symptoms) Onset (ago): hour(s) Consistency: constant and progressively worsening Context: sick contacts Associated symptoms: Reports chills, diarrhea, fever(s) and nausea; Deny abdominal pain, chest pain, ear or mastoid pain, headache(s) or vomiting Related Data Home Medications Medication Instructions Recorded Confirmed cetirizine 10 mg tablet 10 mg PO DAILY 08/23/19 12/12/23 magnesium 250 mg tablet 250 mg PO .1 DAY 08/23/19 12/12/23 montelukast 10 mg tablet 10 mg PO DAILY 08/23/19 12/12/23 medroxyprogesterone 150 mg/mL IM .EVERY 3 MONTHS 02/20/20 12/12/23 intramuscular suspension (Depo-Provera) omeprazole 20 mg capsule,delayed 20 mg PO DAILY 07/18/20 12/12/23 release potassium gluconate 595 mg (99 mg) 595 mg PO DAILY 07/18/20 12/12/23 tablet multivitamin 1 tab PO DAILY 12/12/23 12/12/23 Previous Rx's Medication Instructions Recorded tizanidine 4 mg tablet 4 mg PO BID PRN muscle spasticity 02/13/21 #60 tabs ibuprofen 800 mg tablet 800 mg PO Q8H PRN pain #20 tabs 04/02/21 ondansetron 4 mg disintegrating 4 mg PO Q8H PRN nausea and 03/13/22 tablet vomiting #15 tabs citalopram 40 mg tablet 40 mg PO QAM #90 tabs 12/12/23 folic acid 1 mg tablet 1 mg PO DAILY #60 tabs 12/27/23 Allergies Allergy/AdvReac Type Severity Reaction Status Date / Time venom-wasp Allergy Severe Unknown Verified 12/12/23 07:39 poison sumac extract Allergy Unknown Unknown Verified 02/25/24 20:53 duloxetine [From Cymbalta] Allergy Unknown Verified 02/25/24 20:53 Iodinated Contrast Media Allergy ALGY-Anaphy Verified 02/25/24 20:53 laxis iodine Allergy rash/swelli Verified 02/25/24 20:53 ng latex Allergy RASH Verified 02/25/24 20:53 Sulfa (Sulfonamide Allergy swelling Verified 02/25/24 20:53 Antibiotics) lips cloves Allergy Mild lips swell Uncoded 08/30/23 14:52 Review of Systems General: Reports: 10 or more systems reviewed and unremarkable except in HPI and below Const: Reports: fever(s), chills and body aches; Denies: fatigue Eyes: Denies: change in vision ENMT: Reports: throat pain; Denies: ear or mastoid pain or nasal discharge Card: Denies: chest pain, palpitations, swelling of feet/ankles or lightheadedness Resp: Reports: dyspnea; Denies: productive cough or wheezing GI: Reports: nausea and diarrhea; Denies: abdominal pain, vomiting or constipation : Denies: flank pain, difficulty voiding, dysuria or urinary frequency Musc: Denies: neck pain, back pain or joint pain Skin/Breast: Denies: rash Neuro: Denies: headache(s), numbness in extremities or weakness in extremities PFSH ED PFSH: Medical History Major depressive disorder, recurrent, in partial remission Chronic post-traumatic stress disorder (PTSD) Encounter for long-term opiate analgesic use Opioid contract exists Low back pain of over 3 months duration Surgical History History of tonsillectomy and adenoidectomy Hx of gastric bypass Family History Unknown Cancer Diabetes Stroke Father Advanced cirrhosis of liver Diabetes Hepatitis C Social History Smoking and tobacco/nicotine status: never used tobacco/nicotine Second hand smoke exposure: Yes Alcohol intake: never Substance/Drug Use: never Current gender identity: Female Physical Exam Const: COMMON NORMALS: no acute distress and healthy appearing GENERAL APPEARANCE: cooperative, comfortable and well developed HENMT: COMMON NORMALS: normocephalic, atraumatic, hearing grossly normal bilaterally, external ears normal, EAC's normal, TM's normal bilaterally, Normal external nose present and Normal nasal mucous membranes and turbinates present HEAD & SCALP: normal to inspection, normocephalic and atraumatic FACE & SINUS: normal facial exam and sinuses nontender NOSE: Normal external nose present, Normal nares present, No nasal polyps present and Normal nasal mucous membranes and turbinates present EXTERNAL EAR: Yes external ears normal EXTERNAL AUDITORY CANAL: EAC's normal TYMPANIC MEMBRANE: TM's normal bilaterally MOUTH: Normal oral and palatal mucosa present THROAT: posterior oropharynx normal and tonsils normal Eye: COMMON NORMALS: EOMs intact bilaterally, conjunctivae normal and normal visual nguyen by confrontation GENERAL EYE: appearance normal, both eyes and all related structures CONJUNCTIVA: Yes conjunctivae normal Neck/C-Spine: COMMON NORMALS: full ROM, no lymphadenopathy, supple and no meningeal signs GENERAL: Yes normal visual inspection Chest: COMMONS NORMALS: normal inspection of the chest Resp: COMMON NORMALS: normal respiratory effort and clear to auscultation bilaterally EFFORT & INSPECTION: Yes able to speak in complete sentences AUSCULTATION: clear to auscultation bilaterally Cardio: COMMON NORMALS: regular rate, regular rhythm, S1 normal heart sound present and S2 normal heart sound present RATE: regular rate RHYTHM: regular rhythm HEART SOUNDS: S1 normal heart sound present, S2 normal heart sound present, no gallops, no murmurs and no rubs GI: COMMON NORMALS: Soft to palpation and No hepatosplenomegaly present INSPECTION: Yes normal to inspection PALPATION: Yes Soft to palpation and Yes No hepatosplenomegaly present Extremity: COMMON NORMALS: normal to inspection, full ROM and capillary refill normal Neuro: MENINGEAL SIGNS: Yes no meningeal signs Skin: COMMON NORMALS: no rashes or lesions noted GENERAL SKIN EXAM: no rashes or lesions noted Course Vital Signs: Vital signs: Vital Signs Temperature 98.2 F 02/25/24 20:50 Pulse Rate 79 02/25/24 22:09 Respiratory Rate 16 02/25/24 22:09 Blood Pressure 142/90 02/25/24 22:09 Pulse Oximetry 79 L 02/25/24 22:09 Oxygen Delivery Me thod Room Air 02/25/24 21:05 MDM - URI/Sore Throat Medical Decision Making Patient presented with concerns that she had contracted COVID after being exposed to positive patient. Upper respiratory symptoms were reported, did have unremarkable vitals on arrival and noted be afebrile. Her COVID was negative, however due to acute onset this could be false negative also could resemble another viral syndrome. She is instructed to enact contagion precaution while symptomatic and to treat with Tylenol and ibuprofen for symptoms. Also encourage drink plenty fluids and return with any new or worsening Lab Data Laboratory Results SARS-CoV-2 Ag (Rapid) Negative (Negative) 02/25/24 21:00 No radiology studies performed this visit Discharge Plan Discharge Patient Disposition: Home Clinical Impression: Viral infection Condition: Stable Prescriptions: No Action magnesium 250 mg tablet 250 mg PO .1 DAY montelukast 10 mg tablet 10 mg PO DAILY cetirizine 10 mg tablet 10 mg PO DAILY omeprazole 20 mg capsule,delayed release(DR/EC) 20 mg PO DAILY potassium gluconate 595 mg (99 mg) tablet 595 mg PO DAILY medroxyprogesterone [Depo-Provera] 150 mg/mL suspension IM .EVERY 3 MONTHS tizanidine 4 mg tablet 4 mg PO BID PRN (Reason: muscle spasticity) Qty: 60 2RF multivitamin Tablet 1 tab PO DAILY citalopram 40 mg tablet 40 mg PO QAM Qty: 90 0RF Rx Instructions: Take one tablet by mouth every morning folic acid 1 mg tablet 1 mg PO DAILY Qty: 60 2RF ibuprofen 800 mg tablet 800 mg PO Q8H PRN (Reason: pain) Qty: 20 0RF ondansetron 4 mg tablet,disintegrating 4 mg PO Q8H PRN (Reason: nausea and vomiting) Qty: 15 0RF Discharge Orders: Discharge ED (Routine); Ordered 02/25/24 Ordered By: Ravi Arenas Referrals: Jazmyne Tyson PA [Primary Care Provider] - Discharge Diet: Usual diet Discharge Activity: Increase activity as tolerated Patient Instructions: Viral Syndrome (ED) Activity Restrictions/Additional Instructions: Take Tylenol and ibuprofen for body aches and fevers as discussed. Please drink plenty of fluids. Contagion precaution. Follow-up with primary care and return with any new or worsening of symptoms. Coding Level of Care Code ED Sail Repairer for Chg Fwd Documented by User: Elan Man DO 02/26/24 03:28 HPI - URI/Sore Throat General: Chief Complaint: Upper Respiratory Infection Stated Complaint: believes covid + Time Seen by Provider: 02/25/24 20:57 Related Data Home Medications Medication Instructions Recorded Confirmed cetirizine 10 mg tablet 10 mg PO DAILY 08/23/19 12/12/23 magnesium 250 mg tablet 250 mg PO .1 DAY 08/23/19 12/12/23 montelukast 10 mg tablet 10 mg PO DAILY 08/23/19 12/12/23 medroxyprogesterone 150 mg/mL IM .EVERY 3 MONTHS 02/20/20 12/12/23 intramuscular suspension (Depo-Provera) omeprazole 20 mg capsule,delayed 20 mg PO DAILY 07/18/20 12/12/23 release potassium gluconate 595 mg (99 mg) 595 mg PO DAILY 07/18/20 12/12/23 tablet multivitamin 1 tab PO DAILY 12/12/23 12/12/23 Previous Rx's Medication Instructions Recorded tizanidine 4 mg tablet 4 mg PO BID PRN muscle spasticity 02/13/21 #60 tabs ibuprofen 800 mg tablet 800 mg PO Q8H PRN pain #20 tabs 04/02/21 ondansetron 4 mg disintegrating 4 mg PO Q8H PRN nausea and 03/13/22 tablet vomiting #15 tabs citalopram 40 mg tablet 40 mg PO QAM #90 tabs 12/12/23 folic acid 1 mg tablet 1 mg PO DAILY #60 tabs 12/27/23 Allergies Allergy/AdvReac Type Severity Reaction Status Date / Time venom-wasp Allergy Severe Unknown Verified 12/12/23 07:39 poison sumac extract Allergy Unknown Unknown Verified 02/25/24 20:53 duloxetine [From Cymbalta] Allergy Unknown Verified 02/25/24 20:53 Iodinated Contrast Media Allergy ALGY-Anaphy Verified 02/25/24 20:53 laxis iodine Allergy rash/swelli Verified 02/25/24 20:53 ng latex Allergy RASH Verified 02/25/24 20:53 Sulfa (Sulfonamide Allergy swelling Verified 02/25/24 20:53 Antibiotics) lips cloves Allergy Mild lips swell Uncoded 08/30/23 14:52 PFSH ED PFSH: Medical History Major depressive disorder, recurrent, in partial remission Chronic post-traumatic stress disorder (PTSD) Encounter for long-term opiate analgesic use Opioid contract exists Low back pain of over 3 months duration Surgical History History of tonsillectomy and adenoidectomy Hx of gastric bypass Family History Unknown Cancer Diabetes Stroke Father Advanced cirrhosis of liver Diabetes Hepatitis C Social History Smoking and tobacco/nicotine status: never used tobacco/nicotine Second hand smoke exposure: Yes Alcohol intake: never Substance/Drug Use: never Current gender identity: Female Course Vital Signs: Vital signs: Vital Signs Temperature 98.2 F 02/25/24 20:50 Pulse Rate 79 02/25/24 22:09 Respiratory Rate 16 02/25/24 22:09 Blood Pressure 142/90 02/25/24 22:09 Pulse Oximetry 79 L 02/25/24 22:09 Oxygen Delivery Me thod Room Air 02/25/24 21:05 MDM - URI/Sore Throat Medical Decision Making Patient presented with concerns that she had contracted COVID after being exposed to positive patient. Upper respiratory symptoms were reported, did have unremarkable vitals on arrival and noted be afebrile. Her COVID was negative, however due to acute onset this could be false negative also could resemble another viral syndrome. She is instructed to enact contagion precaution while symptomatic and to treat with Tylenol and ibuprofen for symptoms. Also encourage drink plenty fluids and return with any new or worsening This patient was originally seen by Mr. Deepa PA-C.? I agree with his history, evaluation, and treatment. Lab Data Laboratory Results SARS-CoV-2 Ag (Rapid) Negative (Negative) 02/25/24 21:00 Discharge Plan Discharge Patient Disposition: Home Clinical Impression: Viral infection Condition: Stable Prescriptions: No Action magnesium 250 mg tablet 250 mg PO .1 DAY montelukast 10 mg tablet 10 mg PO DAILY cetirizine 10 mg tablet 10 mg PO DAILY omeprazole 20 mg capsule,delayed release(DR/EC) 20 mg PO DAILY potassium gluconate 595 mg (99 mg) tablet 595 mg PO DAILY medroxyprogesterone [Depo-Provera] 150 mg/mL suspension IM .EVERY 3 MONTHS tizanidine 4 mg tablet 4 mg PO BID PRN (Reason: muscle spasticity) Qty: 60 2RF multivitamin Tablet 1 tab PO DAILY citalopram 40 mg tablet 40 mg PO QAM Qty: 90 0RF Rx Instructions: Take one tablet by mouth every morning folic acid 1 mg tablet 1 mg PO DAILY Qty: 60 2RF ibuprofen 800 mg tablet 800 mg PO Q8H PRN (Reason: pain) Qty: 20 0RF ondansetron 4 mg tablet,disintegrating 4 mg PO Q8H PRN (Reason: nausea and vomiting) Qty: 15 0RF Discharge Orders: Discharge ED (Routine); Ordered 02/25/24 Ordered By: Ravi Arenas Referrals: Jazmyne Tyson PA [Primary Care Provider] - Discharge Diet: Usual diet Discharge Activity: Increase activity as tolerated Patient Instructions: Viral Syndrome (ED) Activity Restrictions/Additional Instructions: Take Tylenol and ibuprofen for body aches and fevers as discussed. Please drink plenty of fluids. Contagion precaution. Follow-up with primary care and return with any new or worsening of symptoms. Coding Level of Care Code ED Sail Repairer for Phillip Read
[2024-02-25 21:37] LABS: SARS Covid-2 Antigen Negative (Negative)
[2024-02-25 22:09] VITALS: BP 142/90; PULSE 79; RESP 16; O2SAT 79
== END 2024-02-25 22:10 | disposition home or self-care (01) ==
PROVIDERS: Emergency Provider Physician Assistant; PCP Physician Assistant
DX: B34.9 Viral infection, unspecified (principal); Z11.52 Encounter for screening for COVID-19; Z77.22 Contact with and (suspected) exposure to environmental tobacco smoke (acute) (chronic)
CPT/HCPCS: 87426; 99283

== ENCOUNTER 2024-04-05 08:00 | Inpatient (IN) | payer MEDICAID, SELFPAY ==
[2024-04-05 08:05] VITALS: BP 161/109; PULSE 75; RESP 16; TEMP 36.7; O2SAT 99
--- NOTE | 2024-04-05 08:15 | W.ED.PSYCHS ---
HPI - Psych General: Chief Complaint: Psychiatric Symptoms Stated Complaint: mhe Time Seen by Provider: 04/05/24 08:07 Source: patient Mode of arrival: ambulatory Limitations: no limitations History of Present Illness: 28-year-old female who has a history of depression states she has had much increased depression over the last few days. States she has been under a lot of stress and she does not want to live anymore and has been having thoughts of killing herself and wants to get help. Associated symptoms: Reports depression and suicidal ideation Related Data Home Medications Medication Instructions Recorded Confirmed cetirizine 10 mg tablet 10 mg PO DAILY 08/23/19 04/05/24 montelukast 10 mg tablet 10 mg PO DAILY 08/23/19 04/05/24 medroxyprogesterone 150 mg/mL 1 mg IM .EVERY 3 MONTHS 02/20/20 04/05/24 intramuscular suspension (Depo-Provera) omeprazole 20 mg capsule,delayed 20 mg PO DAILY 07/18/20 04/05/24 release Previous Rx's Medication Instructions Recorded tizanidine 4 mg tablet 4 mg PO BID PRN muscle spasticity 02/13/21 #60 tabs ibuprofen 800 mg tablet 800 mg PO Q8H PRN pain #20 tabs 04/02/21 folic acid 1 mg tablet 1 mg PO DAILY #60 tabs 12/27/23 citalopram 40 mg tablet 40 mg PO QAM #30 tabs 03/12/24 Allergies Allergy/AdvReac Type Severity Reaction Status Date / Time poison sumac extract Allergy Unknown Unknown Verified 03/12/24 14:48 duloxetine [From Cymbalta] Allergy Unknown Verified 03/12/24 14:48 Iodinated Contrast Media Allergy ALGY-Anaphy Verified 03/12/24 14:48 laxis iodine Allergy rash/swelli Verified 03/12/24 14:48 ng latex Allergy RASH Verified 03/12/24 14:48 Sulfa (Sulfonamide Allergy swelling Verified 03/12/24 14:48 Antibiotics) lips cloves Allergy Mild lips swell Uncoded 08/30/23 14:52 Review of Systems Const: Denies: fever(s), chills, body aches or change in appetite ENMT: Denies: throat pain or dental pain Card: Denies: chest pain Resp: Denies: dyspnea GI: Denies: abdominal pain, nausea, vomiting or diarrhea Musc: Denies: neck pain or back pain Skin/Breast: Denies: rash Neuro: Denies: headache(s) Psych: Reports: depression and suicidal ideation PFSH ED PFSH: Medical History Major depressive disorder, recurrent, in partial remission Chronic post-traumatic stress disorder (PTSD) Encounter for long-term opiate analgesic use Opioid contract exists Low back pain of over 3 months duration Surgical History History of tonsillectomy and adenoidectomy Hx of gastric bypass Family History Unknown Cancer Diabetes Stroke Father Advanced cirrhosis of liver Diabetes Hepatitis C Social History Smoking and tobacco/nicotine status: never used tobacco/nicotine Second hand smoke exposure: Yes Alcohol intake: never Substance/Drug Use: never Current gender identity: Female Physical Exam Const: COMMON NORMALS: no acute distress, patient oriented x3 and healthy appearing HENMT: COMMON NORMALS: normocephalic and atraumatic HEAD & SCALP: normocephalic and atraumatic Eye: COMMON NORMALS: conjunctivae normal CONJUNCTIVA: Yes conjunctivae normal Neck/C-Spine: COMMON NORMALS: full ROM and supple Chest: COMMONS NORMALS: normal inspection of the chest Resp: COMMON NORMALS: normal respiratory effort Cardio: COMMON NORMALS: regular rate RATE: regular rate Extremity: COMMON NORMALS: normal to inspection and full ROM Neuro: COMMON NORMALS: patient oriented x3, moves all extremities and no focal motor deficits Psych: COMMON NORMALS: mental status grossly normal, Normal thought process present and cooperative MOOD & AFFECT: Yes depressed mood THOUGHT PROCESS: Normal thought process present THOUGHT CONTENT: Yes Suicidality present Skin: COMMON NORMALS: no rashes or lesions noted and no wounds GENERAL SKIN EXAM: no rashes or lesions noted Course Vital Signs: Vital signs: Vital Signs Temperature 98.1 F 04/05/24 08:05 Pulse Rate 75 04/05/24 08:05 Respiratory Rate 16 04/05/24 08:05 Blood Pressure 161/109 04/05/24 08:05 Pulse Oximetry 99 04/05/24 08:38 Oxygen Delivery Me thod Room Air 04/05/24 08:38 MDM - Psych Medical Decision Making Patient presents with suicidal ideation she is medically cleared I spoke to psychiatrist will admit at this time Medical Records I reviewed the patient's medical records. Lab Data I reviewed the patient's lab results. 04/05/24 08:13 04/05/24 08:20 Laboratory Results WBC 6.70 10^3/uL (3.29-11.43) 04/05/24 08:13 RBC 4.29 10^6/uL (3.85-5.65) 04/05/24 08:13 Hgb 13.00 g/dL (11.27-16.99) 04/05/24 08:13 Hct 39.3 % (36-47) 04/05/24 08:13 MCV 91.6 fl (85-98) 04/05/24 08:13 MCH 30.3 pg (27-33) 04/05/24 08:13 MCHC 33.1 g/dL (30-55) 04/05/24 08:13 RDW 12.3 % (12.1-15.1) 04/05/24 08:13 Plt Count 262 10^3/cmm (157-399) 04/05/24 08:13 MPV 11.2 fL (7.4-10.4) H 04/05/24 08:13 Neut % (Auto) 53.2 % 04/05/24 08:13 Lymph % (Auto) 36.6 % 04/05/24 08:13 [place] % (Auto) 7.8 % 04/05/24 08:13 Eos % (Auto) 1.5 % 04/05/24 08:13 Baso % (Auto) 0.6 % 04/05/24 08:13 Neut # (Auto) 3.57 10^3/uL (1.8-7.7) 04/05/24 08:13 Lymph # (Auto) 2.5 10^3/uL (0.8-4.8) 04/05/24 08:13 [place] # (Auto) 0.5 10^3/uL (0.2-0.9) 04/05/24 08:13 Eos # (Auto) 0.1 10^3/uL (0.0-0.8) 04/05/24 08:13 Baso # (Auto) 0.0 10^3/uL (0.0-0.1) 04/05/24 08:13 Nucleated RBC % (auto) 0 % 04/05/24 08:13 Nucleated RBCs # 0.0 /100WBC 04/05/24 08:13 Sodium 137 mmol/L (136-145) 04/05/24 08:20 Chloride 105 mmol/L (98-107) 04/05/24 08:20 Carbon Dioxide 23 mmol/L (22-29) 04/05/24 08:20 Anion Gap 12.4 (5-19) 04/05/24 08:20 BUN 6 mg/dL (6-20) 04/05/24 08:20 Creatinine 0.9 mg/dL (0.5-0.9) 04/05/24 08:20 Glucose 98 mg/dL (65-115) 04/05/24 08:20 Calcium 8.6 mg/dL (8.5-10.5) 04/05/24 08:20 Total Bilirubin 0.4 mg/dL (0.15-1.2) 04/05/24 08:20 AST 12 U/L (0-32) 04/05/24 08:20 ALT 9 U/L (0-33) 04/05/24 08:20 Alkaline Phosphatase 63 U/L (35-105) 04/05/24 08:20 Total Protein 6.8 g/dL (6.6-8.7) 04/05/24 08:20 Albumin 4.1 g/dL (3.5-5.2) 04/05/24 08:20 Globulin 2.7 g/dL (1.3-4.6) 04/05/24 08:20 No radiology studies performed this visit Discharge Plan Discharge Patient Disposition: Admitted As Inpatient Clinical Impression: Suicidal ideation Condition: Stable Prescriptions: No Action montelukast 10 mg tablet 10 mg PO DAILY cetirizine 10 mg tablet 10 mg PO DAILY omeprazole 20 mg capsule,delayed release(DR/EC) 20 mg PO DAILY medroxyprogesterone [Depo-Provera] 150 mg/mL suspension 1 mg IM .EVERY 3 MONTHS tizanidine 4 mg tablet 4 mg PO BID PRN (Reason: muscle spasticity) Qty: 60 2RF citalopram 40 mg tablet 40 mg PO QAM Qty: 30 2RF Rx Instructions: Take one tablet by mouth every morning folic acid 1 mg tablet 1 mg PO DAILY Qty: 60 2RF ibuprofen 800 mg tablet 800 mg PO Q8H PRN (Reason: pain) Qty: 20 0RF Referrals: Jazmyne Tyson PA [Primary Care Provider] - Coding Level of Care Code ED Community Mental Health Worker for Phillip Read
[2024-04-05 08:30] LABS: Basophils % 0.6 %; Eosinophils # 0.1 10^3/uL (0.0-0.8); Eosinophils % 1.5 %; Hematocrit 39.3 % (36-47); Lymphocytes # 2.5 10^3/uL (0.8-4.8); Lymphocytes % 36.6 %; Mean Corpuscular HGB Conc 33.1 g/dL (30-55); Mean Corpuscular Hemoglobin 30.3 pg (27-33); Mean Corpuscular Volume 91.6 fl (85-98); Mean Platelet Volume 11.2 fL (7.4-10.4); Monocytes # 0.5 10^3/uL (0.2-0.9); Monocytes % 7.8 %; Neutrophils # 3.57 10^3/uL (1.8-7.7); Neutrophils % 53.2 %; Nucleated Red Blood Cells % 0 %; Platelet Count 262 10^3/cmm (157-399); Red Blood Count 4.29 10^6/uL (3.85-5.65); Red Cell Distribution Width 12.3 % (12.1-15.1)
[2024-04-05 08:38] VITALS: O2SAT 99
[2024-04-05 08:58] LABS: Alanine Aminotransferase 9 U/L (0-33); Albumin Level 4.1 g/dL (3.5-5.2); Alkaline Phosphatase 63 U/L (35-105); Anion Gap 12.4 (5-19); Aspartate Amino Transferase 12 U/L (0-32); Blood Urea Nitrogen 6 mg/dL (6-20); Calcium 8.6 mg/dL (8.5-10.5); Carbon Dioxide 23 mmol/L (22-29); Chloride 105 mmol/L (98-107); Globulin 2.7 g/dL (1.3-4.6); Glomerular Filtration Rate 74.6 mL/min (90-130); Glucose 98 mg/dL (65-115); Osmolality Calculated 282 mOsm/kg (285-295); Potassium 3.4 mmol/L (3.5-5.1); Sodium 137 mmol/L (136-145); Total Bilirubin 0.4 mg/dL (0.15-1.2); Total Protein 6.8 g/dL (6.6-8.7)
[2024-04-05 09:12] LABS: Acetaminophen < 5.0 ug/mL (10-30); Alcohol Level < 10 mg/dL (0-10); Salicylate < 0.3 mg/dL (3-10)
[2024-04-05 09:21] LABS: HCG Qualitative Urine. Negative (Negative)
[2024-04-05 09:27] LABS: Amphetamines Screen Urine Negative (Negative); Barbiturates Screen Urine Negative (Negative); Benzodiazepines Screen Urine Negative (Negative); Cocaine Screen Urine Negative (Negative); Opiate Screen Urine Negative (Negative); PCP Screen Urine Negative (Negative); THC Screen Urine Positive (Negative)
[2024-04-05 15:20] VITALS: BP 127/81; PULSE 72; RESP 18; TEMP 37.1; O2SAT 98
[2024-04-05 19:55] VITALS: BP 118/72; PULSE 81; RESP 16; TEMP 36.7; O2SAT 98
[2024-04-05] MEDS: trazodone 50 mg Tablet PO (22:27)
[2024-04-05] MEDS: hyDROXYzine 25 mg Capsule 50 MG PO (22:28)
[2024-04-06 06:00] VITALS: BP 120/77; PULSE 97; RESP 18; TEMP 37; O2SAT 98
[2024-04-06] MEDS: pantoprazole DR 40 mg Tablet PO (08:15)
[2024-04-06] MEDS: citalopram 20 mg Tablet 40 MG PO (08:15)
[2024-04-06] MEDS: cetirizine 10 mg Tablet PO (08:15)
[2024-04-06] MEDS: folic acid 1 mg Tablet PO (08:15)
[2024-04-06] MEDS: acetaminophen 325 mg Tablet 650 MG PO (12:09)
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
[2024-04-06 14:00] VITALS: BP 141/82; PULSE 83; RESP 16; TEMP 36.8; O2SAT 98
[2024-04-06] MEDS: hydrocortisone 1% cream 28 gm 1 APPLIC TOPICAL (17:56)
[2024-04-06] MEDS: haloperidol 5 mg Tablet PO (20:05)
[2024-04-06] MEDS: trazodone 50 mg Tablet PO (20:37)
[2024-04-06] MEDS: escitalopram 10 mg Tablet PO (20:37)
[2024-04-06 21:25] VITALS: BP 96/58; PULSE 86; RESP 18; TEMP 37; O2SAT 99
[2024-04-07 06:00] VITALS: BP 115/66; PULSE 77; RESP 17; TEMP 37.1; O2SAT 98
[2024-04-07] MEDS: folic acid 1 mg Tablet PO (07:59)
[2024-04-07] MEDS: pantoprazole DR 40 mg Tablet PO (07:59)
[2024-04-07] MEDS: escitalopram 10 mg Tablet PO (07:59)
[2024-04-07] MEDS: citalopram 20 mg Tablet 40 MG PO (07:59)
[2024-04-07] MEDS: cetirizine 10 mg Tablet PO (08:00)
[2024-04-07] MEDS: acetaminophen 325 mg Tablet 650 MG PO (09:21)
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
[2024-04-07 13:49] VITALS: BP 126/79; PULSE 78; RESP 18; TEMP 36.8; O2SAT 98
[2024-04-07 21:07] VITALS: BP 98/61; PULSE 64; RESP 17; TEMP 36.7; O2SAT 97
[2024-04-08] MEDS: trazodone 50 mg Tablet PO ×2 (03:03→20:20)
[2024-04-08 06:00] VITALS: BP 130/68; PULSE 77; RESP 16; TEMP 37.3; O2SAT 98
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
[2024-04-08] MEDS: pantoprazole DR 40 mg Tablet PO (08:22)
[2024-04-08] MEDS: acetaminophen 325 mg Tablet 650 MG PO (08:22)
[2024-04-08] MEDS: cetirizine 10 mg Tablet PO (08:22)
[2024-04-08] MEDS: folic acid 1 mg Tablet PO (08:22)
[2024-04-08] MEDS: ondansetron 4 MG Tablet PO (08:22)
[2024-04-08] MEDS: escitalopram 10 mg Tablet PO ×2 (08:22→14:00)
[2024-04-08] MEDS: citalopram 20 mg Tablet 40 MG PO (08:22)
[2024-04-08 12:25] LABS: Bilirubin Urine Negative (Negative); Blood Urine Negative (Negative); Glucose Urine UA Negative (Normal); Ketones Urine Negative (Negative); Leukocyte Esterase Urine 2+ (Negative); Nitrate Urine Negative (Negative); Protein Urine Negative (Negative); Specific Gravity, Urine 1.017 (1.005-1.030); Urine Appearance Clear (CLEAR); Urine Color Yellow (Yellow)
[2024-04-08 12:30] LABS: Bacteria Urine 1+ /hpf; Hyaline Casts Urine 0-4 /lpf; RBC Urine 0-2 /hpf (0-2); Squamous Epithelial Cell Urine 0-5 /hpf (0-5); WBC Urine 0-5 /hpf (0-5)
[2024-04-08] MEDS: hyDROXYzine 25 mg Capsule 50 MG PO (12:37)
--- NOTE | 2024-04-08 12:40 | PC.NURSE ---
Vistaril 50mg PO for anxiety because unable to get ahold of her boss
[2024-04-08] MEDS: blistex lip oint 7 gm Tube 1 APPLIC TOPICAL ×2 (12:58→16:51)
[2024-04-08 14:00] VITALS: BP 98/63; PULSE 73; RESP 16; TEMP 36.8; O2SAT 97
[2024-04-08 19:57] VITALS: BP 108/60; PULSE 67; RESP 17; TEMP 37.1; O2SAT 98
[2024-04-09 06:00] VITALS: BP 121/86; PULSE 94; RESP 17; TEMP 37.4; O2SAT 97
[2024-04-09] MEDS: acetaminophen 325 mg Tablet 650 MG PO (06:03)
[2024-04-09] MEDS: hyDROXYzine 25 mg Capsule 50 MG PO ×2 (06:38→14:24)
[2024-04-09] MEDS: citalopram 20 mg Tablet PO (08:40)
[2024-04-09] MEDS: cetirizine 10 mg Tablet PO (08:40)
[2024-04-09] MEDS: folic acid 1 mg Tablet PO (08:40)
[2024-04-09] MEDS: pantoprazole DR 40 mg Tablet PO (08:40)
[2024-04-09] MEDS: escitalopram 10 mg Tablet 20 MG PO (08:41)
[2024-04-09] MEDS: blistex lip oint 7 gm Tube 1 APPLIC TOPICAL (13:36)
[2024-04-09] MEDS: hydrocortisone 1% cream 28 gm 1 APPLIC TOPICAL (13:36)
[2024-04-09 14:00] VITALS: BP 93/62; PULSE 85; RESP 16; TEMP 36.6; O2SAT 95
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
[2024-04-09] MEDS: OLANZapine 5 mg ODT PO (15:45)
[2024-04-09 19:27] VITALS: BP 106/74; PULSE 77; RESP 18; TEMP 36.6; O2SAT 100
[2024-04-09] MEDS: trazodone 50 mg Tablet PO (23:35)
[2024-04-10 06:00] VITALS: BP 108/63; PULSE 87; RESP 18; TEMP 37.2; O2SAT 97
[2024-04-10] MEDS: acetaminophen 325 mg Tablet 650 MG PO (08:36)
[2024-04-10] MEDS: cetirizine 10 mg Tablet PO (08:37)
[2024-04-10] MEDS: pantoprazole DR 40 mg Tablet PO (08:37)
[2024-04-10] MEDS: folic acid 1 mg Tablet PO (08:37)
[2024-04-10] MEDS: escitalopram 10 mg Tablet 30 MG PO (08:37)
[2024-04-10 12:48] VITALS: BP 108/63; PULSE 87; RESP 18; TEMP 37.2; O2SAT 97
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
== END 2024-04-10 15:00 | disposition home or self-care (01) | DRG 885 ==
LOC: ER 09:18 → NP 13:24
PROVIDERS: Admitting Provider Psychiatry & Neurology Psychiatry; Emergency Provider Emergency Medicine; PCP Physician Assistant; Visit Provider Psychiatry & Neurology Psychiatry
DX: F33.3 Major depressive disorder, recurrent, severe with psychotic symptoms (principal); R45.851 Suicidal ideations; Z68.43 Body mass index [BMI] 50.0-59.9, adult; F41.9 Anxiety disorder, unspecified; E66.01 Morbid (severe) obesity due to excess calories; F43.12 Post-traumatic stress disorder, chronic; F12.90 Cannabis use, unspecified, uncomplicated; F60.3 Borderline personality disorder
CPT/HCPCS: 80053; 80306; 80307; 81001; 81025; 85025; 97150; 97165; 99285; Q0162

== ENCOUNTER 2024-08-20 21:02 | Emergency (ER) | payer MEDICAID, SELFPAY ==
[2024-08-20 21:18] VITALS: BP 111/67; PULSE 100; TEMP 37.4; O2SAT 98; BMI 53.2
== END 2024-08-20 23:11 | disposition left against medical advice (07) ==
LOC: ER 21:05
PROVIDERS: Emergency Provider Family Medicine; PCP Physician Assistant
DX: Z53.21 Procedure and treatment not carried out due to patient leaving prior to being seen by health care provider (principal)